=== PATIENT | female | born 1985 | race Caucasian/White ===

== ENCOUNTER 2020-04-10 15:07 | Inpatient (IN) | payer MEDICARE, MEDICAID, SELFPAY ==
[2020-04-10 15:09] VITALS: BP 156/76; PULSE 101; RESP 15; TEMP 35.6; O2SAT 96; BMI 44.2
--- NOTE | 2020-04-10 15:24 | ED.DCSUM_ITS ---
- ER Visit Summary Date of Service: 04/10/20 Chief Complaint: [Requesting detox from alcohol] History of Present Illness: The patient is a 34 F [presents to the emergency department stating that she wants detox from alcohol. Patient states that she was given an ultimatum by her to get into an inpatient program or he would serve her with a strange order against her. Patient states that her took 2 children and left in March because of her drinking. She is been drinking daily since October. She had been drinking mostly vodka. Patient states that she decided on 22 March when her left that she would stop drinking and stop for 4 days. Patient started drinking again on . Patient had an appointment with 180 yesterday which she missed. Patient presents today asking for detox and her last drink was around 1 AM and she had wine at that time. Currently she feels shaky anxious and jittery has a hard time focusing. She complains of nausea. She denies any abdominal pain. She denies recent illness or Covid exposures. She denies any illicit drug use.] Physical Examination: [HEENT-PERRLA, EOMI. Cranial nerves II through XII grossly intact. TMs clear. Mucous membranes moist. No adenopathy. Cardiovascular-regular rate and rhythm without murmur or ectopy Lungs-clear to auscultation, chest wall stable without crepitus or subcu emphysema Abdomen-normoactive bowel sounds, soft, nontender, no rebound or rigidity, no peritoneal signs. Extremities-intact ?4, normal range of motion, normal pulses, atraumatic] Test Results: [CBC with differential as well as LFTs and alcohol level ordered and will be pending.] Emergency Department Course and Treatment: [Line established. Patient was given Librium 25 mg p.o. Patient was given Zofran 4 mg IV. Patient was given normal saline.] Discussed with hospitalist will evaluate patient for admission Treatment Plan: [Admit] Disposition: [Admit] Impression: [Alcohol withdrawal/request for detox ] This note was generated with [employer] software. It may contain incorrect words, spelling, and punctuation that were not noted in review of the chart prior to signing ED Disposition - Plan for ED Patient: Referrals: Mukesh Peñaloza DO [Primary Care Provider] -
[2020-04-10] MEDS: Ondansetron 4 MG/2 ML Vial IV (15:56)
[2020-04-10] MEDS: 0.9% Normal Saline 1,000 ML 1000 ML IV (15:56)
[2020-04-10] MEDS: chlordiazePOXIDE 25 MG Capsule PO (16:00)
[2020-04-10 16:09] LABS: Absolute Lymphocyte Count 1.83 X10^3/uL (0.83-4.51); Absolute Neutrophil Count 7.4 X10^3/uL (2.0-7.7); Basophil# 0.12 X10^3/uL; Basophil% 1.2 % (0-1); Eosinophil# 0.11 X10^3/uL; Eosinophils% 1.1 % (0-5); Hemoglobin 14.4 g/dL (12.0-15.0); Lymphocyte # 1.83 X10^3/ul (4.0); Lymphocyte % 18.1 % (19-41); Mean Corp Hgb Conc 32.7 g/dL (32-36); Mean Corpuscular Hgb 30.6 pg (27.0-32.0); Mean Corpuscular Volume 93.4 fL (81-99); Mean Platelet Vol. 9.5 fl (6.2-12.0); Monocyte% 5.9 % (0-10); NRBC Flagged by Analyzer 0 % (0-5); Neutrophil # 7.43 X10^3/uL (2.7-7.7); Neutrophil % 73.4 % (47-70); Platelet Count 413 K/mm3 (150-450); RBC Distribution Width CV 13.5 % (11.6-14.6); RBC Distribution Width SD 46.3 fl (35.1-43.9); Red Blood Count 4.71 M/mm3 (4.2-5.4); White Blood Count 10.1 K/mm3 (4.4-11.0)
[2020-04-10 16:17] LABS: ALB/GLOB Ratio 0.9 RATIO (0.9-2.4); AST(SGOT) 106 U/L (15-37); Alanine Aminotransfer ALT/SGPT 84 U/L (13-56); Albumin, Serum 4.1 g/dL (3.2-5.0); Alkaline Phosphatase 57 U/L (45-117); Anion Gap 8 (5-15); BUN 9 mg/dL (7-18); BUN/Creat Ratio 13.7 RATIO (10-20); Calcium,Total 9.3 mg/dL (8.5-10.1); Chloride 108 mmol/L (98-107); Creatinine, Serum 0.66 mg/dL (0.55-1.02); EST Glomerular Filtration Rate 109 mL/min (>60); Est Glom Filt Rate - Afr Amer 131 mL/min (>60); Estimated Creatinine Clearance 98.42 ml/min; Globulin 4.6 g/dL (2.2-4.2); Glucose 137 mg/dL (74-106); Protein, Total 8.7 g/dL (6.4-8.2); Sodium Level 140 mmol/L (136-145)
--- NOTE | 2020-04-10 16:20 | CM.ED ---
SOCIAL WORK Informant: Dr. Whitfield Reason for Consult: Substance Abuse- requesting detox from alcohol Met with patient in room. Introduced role and reason for referral. Patient states has been drinking daily since October. Patient reports history of depression, anxiety, schizoaffective disorder and PTSD. Patient states follows with [facility] and is treated with medication and counseling services. Patient states was to have an appointment with [facility] yesterday and missed appointment due to lack of transportation. Patient wishes to complete detox program here at [facility] and continue to follow with [facility]. Call to [facility] Treatment NavigatorCem to update on admission. group care worker from [facility] to follow up with patient tomorrow. Plan: Admit to AMRITA Duvall, FLOTATION TENDER HELPER, STATE [employer]ERAL RELATIONS DEPUTY DIRECTOR
--- NOTE | 2020-04-10 16:57 | PCM.HP.STD ---
Problem List (1) Alcohol withdrawal Status: Acute Qualifiers: Complication of substance-induced condition: uncomplicated Qualified Code(s): F10.230 - Alcohol dependence with withdrawal, uncomplicated History of Present Illness Date of Admission: 04/10/20 Chief Complaint: alcohol withdrawal The patient is a 34 year old F presents seeking alcohol withdrawal. Patient drinks about 1/5 of vodka per day. Last drink was this morning. Patient was given an ultimatum by her to seek treatment or be served papers. Patient presents seeking acute treatment for alcohol withdrawal and then to follow-up with 180 upon discharge. Patient states that she quit around March 22 and was sober for about 4 days only to resume drinking again. During that time she did not have any symptoms consistent with delirium tremens. [] Past Medical History Medical History: Medical History (Last Updated 04/10/20 @ 17:[address] Gm Feliz, DO) Anemia D64.9 Depression F32.9 Hirsutism L68.0 Hypothyroid E03.9 VAUGHN (obstructive sleep apnea) G47.33 PTSD (post-traumatic stress disorder) F43.10 Psoriasis L40.9 Psoriatic arthritis L40.50 HTN (hypertension) I10 Allergies No Known Allergies Allergy (Verified 04/10/20 15:07) Home Medications: Ambulatory Orders Medication Instructions Recorded Ferrous Sulfate [Iron] 325 mg PO DAILY 04/17/16 Magnesium Oxide [Mag-Ox 400] 400 mg PO DAILY 04/17/16 Amlodipine Besylate 5 mg PO DAILY 04/10/20 Asenapine Maleate [Saphris] 20 mg SL QHS 04/10/20 Biotin 2,500 mcg PO DAILY 04/10/20 Carvedilol [Coreg (Beta Juan)] 6.25 mg PO BID 04/10/20 Cholecalciferol (Vitamin D3) 2,000 unit PO DAILY 04/10/20 [Vitamin D3] Cyanocobalamin (Vitamin B-12) 1,000 mcg PO DAILY 04/10/20 [B-12] Duloxetine HCl 60 mg PO BID 04/10/20 Ferrous Sulfate 650 mg PO QHS 04/10/20 Folic Acid 1 mg PO DAILY 04/10/20 Guselkumab [Tremfya] 100 mg SQ .COMPLEX 04/10/20 Lamotrigine 100 mg PO DAILY 04/10/20 Levothyroxine [Synthroid] 25 mcg PO DAILY 04/10/20 Methotrexate/Pf [Rasuvo 10 mg/0.2 10 mg SQ TH 04/10/20 ml Autoinj] Multivitamin 1 tab PO DAILY 04/10/20 Progesterone, Micronized 200 mg PO QHS 04/10/20 [Progesterone] Tizanidine HCl 4 mg PO PRN PRN 04/10/20 Triamcinolone 0.5% Cream 1 applic TP DAILY PRN PRN 04/10/20 [Triamcinolone Acetonide] Smoking Status: Light Smoker (<10/day) Alcohol: Heavy Drugs: None - *Family History Maternal History Items: - - no heart dz Review of Systems Constitutional: Denies: Anorexia, Chills, Fever, Night Sweats Eyes: Denies: Blurred vision, Double vision HEENT: Denies: Head Aches, Sinus Congestion, Sinus Drainage Cardiovascular: Denies: Chest Pain, Palpitations Respiratory: Denies: Cough, Shortness of breath at rest, Sputum production Gastrointestinal: Denies: Abdominal Pain, Nausea, Vomiting Genitourinary: Denies: Dysuria Musculoskeletal: Denies: Joint Pain, Joint Tenderness Skin: Denies: Rash, Wounds Neurological: Denies: Numbness, Tingling, Focal weakness Hematologic/ Lymphatic: Denies: Easy Bruising, Easy Bleeding, Hx of blood clot Comment: All review of systems were negative except as mentioned above in the history of present illness and the other review of systems. VTE Information - Inpt Only VTE Present on Admission: No VTE Mechan Device Prophylaxis: None VTE Pharm Prophylaxis ordered?: No Patient Problems: Active and Suspected Problems (Last Updated 04/10/20 @ 17:[address] Gm Feliz, DO) Alcohol withdrawal (Acute) - Physical Exam Vitals/I&O's: Vital Signs Temp Pulse Resp BP Pulse Ox 35.6 C L 101 H 15 156/76 H 96 04/10/20 15:09 04/10/20 15:04/10/20 15:04/10/20 15:04/10/20 15:09 Oxygen Delivery Method Room Air Weight: 113.398 kg Body Mass Index (BMI) 44.2 General: Alert, No apparent distress HEENT: Atraumatic, Normocephalic Oral: Moist Mucosa, No Gingival or Mucosal Lesions/ Ulcerations Neck: No Nodes, Thyroid Normal Size and Texture Lungs: Clear to auscultation, Normal air movement, No rhonchi, No wheeze, No rales Cardiovascular: Regular rate, Regular Rhythm, Normal S1, Normal S2, No murmurs Abdomen: Bowel Sounds Present, Soft, Non Tender, Non-Distended, No Hepato-splenomegaly Extremities: No edema, No Calf Tenderness Skin: No breakdown, - - Numerous scaled plaques on arms and legs. Tuft of hair over her buttocks. Musculoskeletal: No Tenderness to Palpation of Joints or Extremities, No Muscle Wasting Psych/Mental Status: Normal Affect, Appropriate Laboratory Results 04/10/20 15:45: WBC 10.1, RBC 4.71, Hgb 14.4, Hct 44.0, MCV 93.4, MCH 30.6, MCHC 32.7, RDW Std Deviation 46.3 H, RDW Coeff of Agatha 13.5, Plt Count 413, MPV 9.5, Immature Gran % (Auto) 0.300, Neut % (Auto) 73.4 H, Lymph % (Auto) 18.1 L, [place] % (Auto) 5.9, Eos % (Auto) 1.1, Baso % (Auto) 1.2 H, Absolute Neuts (auto) 7.4, Absolute Lymphs (auto) 1.83, Nucleated RBC % 0 04/10/20 15:45: Sodium 140, Potassium 4.0, Chloride 108 H, Carbon Dioxide 24.0, Anion Gap 8, BUN 9, Creatinine 0.66, Estim Creat Clear Calc 98.42, Est GFR (MDRD) Af Amer 131, Est GFR (MDRD) Non-Af 109, BUN/Creatinine Ratio 13.7, Glucose 137 H, Calcium 9.3, Total Bilirubin 0.60, AST 106 H, ALT 84 H, Alkaline Phosphatase 57, Total Protein 8.7 H, Albumin 4.1, Globulin 4.6 H, Albumin/Globulin Ratio 0.9 04/10/20 15:45: Ethyl Alcohol 11.0 04/10/20 15:45: Serum , Qual Pending Current Medications Sodium Chloride () 1,000 mls @ 150 mls/hr IV .[id number] [facility] Assessment/Plan All Active Problems (Last Updated 04/10/20 @ 17:[address] Gm Feliz, DO) Alcohol withdrawal (Acute) 1. acute alcohol withdrawal: Patient will be initiated on a phenobarbital taper plus additional medications to help with a somatic complaints of her withdrawal. Patient to follow-up with 180. Peers at the nidus of this was the giving the paper patient an ultimatum and that he would be taking her kids away unless she got treatment. Patient clarifies that she does not need to immediately go into an addiction program upon discharge from the hospital. 2. Psoriasis and psoriatic arthritis: Hold off on the ixekizumab as patient only takes it once weekly. 3. Hirsutism: This is a chronic process for the patient. Patient asking if she could shave told her that that would be fine. Recommend endocrinology follow-up as outpatient. 4. Hypertension: Continue with amlodipine and carvedilol. 5. VTE prophylaxis: Low risk. 6. Obstructive sleep apnea: Patient on CPAP at home and she has her CPAP here with her. Okay for her to use her own CPAP. Inpatient E&M: 37584 Init Hosp L2
[2020-04-10 16:59] LABS: Internal QC Validated? YES +Cl - CLEAR BKGD; Pregnancy, Serum, hCG Quali. NEGATIVE Negative
[2020-04-10 17:12] VITALS: BP 147/86; PULSE 88; RESP 16; TEMP 36.8; O2SAT 96
[2020-04-10 17:39] VITALS: BMI 38.9
[2020-04-10 18:03] VITALS: BP 168/90; PULSE 109; RESP 16; TEMP 37.7; O2SAT 95
[2020-04-10 18:06] VITALS: BP 168/90; PULSE 109; RESP 16; TEMP 37.7; O2SAT 95
[2020-04-10] MEDS: Dicyclomine 10 MG Capsule 20 MG PO (18:36)
[2020-04-10] MEDS: Loperamide 2 MG Capsule PO (18:36)
[2020-04-10] MEDS: cloNIDine HCl 0.1 MG Tablet PO (18:37)
[2020-04-10] MEDS: Buprenorphine HCl 2 MG TAB.SUBL 4 MG SL (18:37)
[2020-04-10] MEDS: Acetaminophen 500 MG Tablet PO (18:37)
[2020-04-10 19:56] VITALS: BP 148/85; PULSE 87; RESP 18; TEMP 37; O2SAT 97
[2020-04-10] MEDS: Phenobarbital 32.4 MG Tablet 64.8 MG PO ×2 (19:58→22:37)
[2020-04-10] MEDS: Gabapentin 300 MG Capsule PO (20:43)
[2020-04-10] MEDS: Ibuprofen 600 MG Tablet PO (20:43)
[2020-04-10] MEDS: Ondansetron 8 MG Tablet PO (21:55)
[2020-04-10] MEDS: hydrOXYzine PAM 25 MG Capsule 50 MG PO (22:37)
[2020-04-10] MEDS: Carvedilol 6.25 MG Tablet PO (22:37)
[2020-04-10] MEDS: DULoxetine Hcl 60 MG Capsule PO (22:37)
[2020-04-10] MEDS: ASENAPINE MALEATE 10 MG 20 MG SL (23:15)
--- NOTE | 2020-04-10 23:55 | PCS.PANDOC ---
PANDEMIC DOCUMENTATION INITIATED: Date: 1899 Time: 04/10/20
[2020-04-11] VITALS (7 sets, daily range): BP systolic 121–144; BP diastolic 65–91; PULSE 78–98; RESP 15–18; TEMP 36.7–37.2; O2SAT 97–100
[2020-04-11] MEDS: Phenobarbital 32.4 MG Tablet 64.8 MG PO ×6 (02:23→23:10)
[2020-04-11] MEDS: cloNIDine HCl 0.1 MG Tablet PO ×2 (02:42→20:53)
[2020-04-11] MEDS: Levothyroxine 25 MCG TABLET PO (06:30)
[2020-04-11] MEDS: Gabapentin 300 MG Capsule PO ×2 (06:35→14:47)
--- NOTE | 2020-04-11 07:45 | PCM.PN.HOSP ---
Patient Problems: Active and Suspected Problems (Last Updated 04/10/20 @ 17:[address] Gm Feliz, DO) Alcohol withdrawal (Acute) Subjective: Patient seen and examined. She was admitted for acute alcohol withdrawal. She has no complaints this morning. CIWA score is 5. She has remained hemodynamically stable. Vitals/I&O's: Vital Signs Temp Pulse Resp BP Pulse Ox 98.3 F 86 18 131/91 H 100 04/11/20 02:18 04/11/20 02:18 04/11/20 02:18 04/11/20 02:18 04/11/20 02:18 Oxygen Delivery Method Room Air Weight: 220 lb Body Mass Index (BMI) 38.9 Intake and Output for Last 24 Hours 04/09/20 04/10/20 04/11/20 23:59 23:59 23:59 Intake Total 1800 / 1800 600 / 600 Balance 1800 / 1800 600 / 600 General: Alert, Oriented x3, Cooperative, No apparent distress HEENT: Atraumatic, PERRLA, EOMI, Normocephalic Neck: Supple, No JVD, Negative Carotid Bruits Lungs: Clear to auscultation, Normal air movement Cardiovascular: Regular rate, No murmurs Abdomen: Bowel Sounds Present, Soft, Non Tender Extremities: No edema, Capillary Refill Less than 3 Seconds Skin: No rashes, No breakdown Musculoskeletal: No Tenderness to Palpation of Joints or Extremities Neurological: Cranial nerves II-XII grossly intact Psych/Mental Status: Normal Affect, Appropriate, Alert and oriented to time, place, person, mood and affect Microbiology Past 72 Hours 04/10/20 18:00 Mucosa - Nose SARS-CoV-2 Antigen (Rapid) - Final Laboratory Results 04/10/20 15:45: WBC 10.1, RBC 4.71, Hgb 14.4, Hct 44.0, MCV 93.4, MCH 30.6, MCHC 32.7, RDW Std Deviation 46.3 H, RDW Coeff of Agatha 13.5, Plt Count 413, MPV 9.5, Immature Gran % (Auto) 0.300, Neut % (Auto) 73.4 H, Lymph % (Auto) 18.1 L, [place] % (Auto) 5.9, Eos % (Auto) 1.1, Baso % (Auto) 1.2 H, Absolute Neuts (auto) 7.4, Absolute Lymphs (auto) 1.83, Nucleated RBC % 0 04/10/20 15:45: Sodium 140, Potassium 4.0, Chloride 108 H, Carbon Dioxide 24.0, Anion Gap 8, BUN 9, Creatinine 0.66, Estim Creat Clear Calc 98.42, Est GFR (MDRD) Af Amer 131, Est GFR (MDRD) Non-Af 109, BUN/Creatinine Ratio 13.7, Glucose 137 H, Calcium 9.3, Total Bilirubin 0.60, AST 106 H, ALT 84 H, Alkaline Phosphatase 57, Total Protein 8.7 H, Albumin 4.1, Globulin 4.6 H, Albumin/Globulin Ratio 0.9 04/10/20 15:45: Ethyl Alcohol 11.0 04/10/20 15:45: Serum , Qual NEGATIVE Current Medications Acetaminophen (Acetaminophen 500 Mg Tablet) 500 mg PO Q4H PRN PRN PRN Reason: Temp > 100.4 F Last Admin: 04/10/20 18:37 Dose: 500 mg Documented by: Al Hydroxide/Mg Hydroxide (Mag Hydrox/Al Hydrox/Simeth 30 Ml Udc) 30 ml PO Q6H PRN PRN PRN Reason: dyspesia Amlodipine Besylate (Amlodipine 5 Mg Tablet) 5 mg PO DAILY [facility] Bisacodyl (Bisacodyl 10 Mg Suppository) 10 mg RECTAL DAILY PRN PRN Reason: Constipation Carvedilol (Carvedilol 6.25 Mg Tablet) 6.25 mg PO BID [facility] Last Admin: 04/10/20 22:37 Dose: 6.25 mg Documented by: Cholecalciferol (Cholecalciferol (Vit D3) 1,000 Unit (25mcg)) 2,000 unit PO DAILY [facility] Clonidine (Clonidine Hcl 0.1 Mg Tablet) 0.1 mg PO Q8H PRN PRN PRN Reason: RESTLESSNESS Last Admin: 04/11/20 02:42 Dose: 0.1 mg Documented by: Cyanocobalamin (Cyanocobalamin 500 Mcg Tablet) 1,000 mcg PO DAILY [facility] Dicyclomine HCl (Dicyclomine 10 Mg Capsule) 20 mg PO Q6H PRN PRN PRN Reason: Abdominal Discomfort Last Admin: 04/10/20 18:36 Dose: 20 mg Documented by: Duloxetine HCl (Duloxetine Hcl 60 Mg Capsule) 60 mg PO BID [facility] Last Admin: 04/10/20 22:37 Dose: 60 mg Documented by: Ferrous Sulfate (Ferrous Sulfate 325 Mg Tablet) [facility] Folic Acid (Folic Acid 1 Mg Tablet) [facility] Gabapentin (Gabapentin 300 Mg Capsule) 300 mg PO Q8H PRN PRN PRN Reason: moderate to severe anxiety Last Admin: 04/11/20 06:35 Dose: 300 mg Documented by: Hydroxyzine Pamoate (Hydroxyzine Vanesa 25 Mg Capsule) 50 mg PO Q6H PRN PRN PRN Reason: mild anxiety Last Admin: 04/10/20 22:37 Dose: 50 mg Documented by: Sodium Chloride () 250 mls @ 15 mls/hr IV .[id number] PRN PRN Reason: Saline Flush Sodium Chloride () 250 mls @ 15 mls/hr IV .[id number] PRN PRN Reason: Additional IVPB Infusion Ibuprofen (Ibuprofen 600 Mg Tablet) 600 mg PO Q8H PRN PRN PRN Reason: Pain Score 1-10 Last Admin: 04/10/20 20:43 Dose: 600 mg Documented by: Lamotrigine (Lamotrigine 100 Mg Tablet) 100 mg PO DAILY [facility] Levothyroxine Sodium (Levothyroxine 25 Mcg Tablet) 25 mcg PO DAILY@0600 [facility] Last Admin: 04/11/20 06:30 Dose: 25 mcg Documented by: Loperamide HCl (Loperamide 2 Mg Capsule) 2 mg PO Q4H PRN PRN PRN Reason: LOOSE STOOLS Last Admin: 04/10/20 18:36 Dose: 2 mg Documented by: Magnesium Chloride (Magnesium Chloride 64 Mg Delay Rel.Tablet) 128 mg PO DAILY [facility] Methocarbamol (Methocarbamol 750 Mg Tablet) 1,500 mg PO Q6H PRN PRN PRN Reason: MUSCLE SPASM Nutritional Formula (Lactose Free) (Ensure Enlive 120 Ml Liquid) 120 ml PO 4X/DAY [facility] Last Admin: 04/10/20 23:15 Dose: 120 ml Documented by: Ondansetron HCl (Ondansetron 8 Mg Tablet) 8 mg PO Q8H PRN PRN PRN Reason: NAUSEA Last Admin: 04/10/20 21:55 Dose: 8 mg Documented by: Phenobarbital (Phenobarbital 32.4 Mg Tablet) 97.2 mg PO Q4H [facility]; Taper Stop: 04/15/20 02:59 Last Admin: 04/11/20 06:30 Dose: 97.2 mg Documented by: Senna (Senna Tablet) 2 tablet PO QHS PRN PRN Reason: Constipation Sodium Chloride (0.9% Saline Lock 10 Ml Syringe) 10 - 40 ml IV UD PRN PRN Reason: SALINE FLUSH Thiamine HCl (Thiamine Hydrochloride 100 Mg Tablet) 100 mg PO DAILYCM [facility] Trazodone HCl (Trazodone 100 Mg Tablet) 100 mg PO QHS PRN PRN PRN Reason: INSOMNIA Medical Necessity - Tobacco Use Smoking Status: Light Smoker (<10/day) Tobacco Use: Cigarettes Assessment/Plan All Active Problems (Last Updated 04/10/20 @ 17:[address] Gm Feliz, DO) Alcohol withdrawal (Acute) #Acute alcohol withdrawal On phenobarbital withdrawal protocol. On thiamine, folic acid and multivitamins. Monitor CIWA score which is 5 this morning. #Hypertension: On amlodipine and carvedilol #Psoriasis and psoriatic arthritis: On his acute eval weekly. #Chronic hirsutism: To follow-up with endocrinology on outpatient basis. #Obstructive sleep apnea: On CPAP nightly. DVT prophylaxis: Low risk. Encouraged to ambulate. Inpatient E&M: 28165 Subs Hosp L2
[2020-04-11] MEDS: Ferrous Sulfate 325 MG Tablet PO (08:05)
[2020-04-11] MEDS: Thiamine Hydrochloride 100 MG Tablet PO (08:05)
[2020-04-11] MEDS: Folic Acid 1 MG Tablet PO (08:05)
[2020-04-11] MEDS: Magnesium Chloride 64 MG Delay Rel.Tablet 128 MG PO (09:21)
[2020-04-11] MEDS: Cyanocobalamin 500 MCG Tablet 1000 MCG PO (09:21)
[2020-04-11] MEDS: amLODIPine 5 MG Tablet PO (09:22)
[2020-04-11] MEDS: lamoTRIgine 100 MG Tablet PO (09:22)
[2020-04-11] MEDS: Carvedilol 6.25 MG Tablet PO ×2 (09:22→23:11)
[2020-04-11] MEDS: DULoxetine Hcl 60 MG Capsule PO ×2 (09:23→23:10)
[2020-04-11] MEDS: hydrOXYzine PAM 25 MG Capsule 50 MG PO (09:43)
[2020-04-11] MEDS: Ammonium Lactate 225 gm Bottle 1 APPLIC TOPICAL ×2 (14:16→23:13)
[2020-04-11] MEDS: Methocarbamol 750 MG Tablet 1500 MG PO ×2 (14:47→20:52)
--- NOTE | 2020-04-11 19:26 | ADDICTION ---
This medical writer met with patient in her room. Patient appeared to be experiencing active delusions and presented as difficult to have a conversation with or focus on topic. Pt. states that she is not in alcohol withdrawal and is here because she is not allowed to go back to her home based on protection order. Pt. plans to follow up with [facility] and is established with both agencies. She is considering [facility] upon d/c from [facility]. This medical writer will complete documentations and will fax to [facility].
[2020-04-11] MEDS: ASENAPINE MALEATE 10 MG 20 MG SL (23:11)
[2020-04-11] MEDS: busPIRone 15 MG TABLET 30 MG PO (23:18)
[2020-04-12] VITALS (9 sets, daily range): BP systolic 105–137; BP diastolic 55–74; PULSE 68–82; RESP 15–16; TEMP 36.6–37.1; O2SAT 97–100
[2020-04-12] MEDS: Phenobarbital 32.4 MG Tablet 64.8 MG PO ×6 (03:12→23:07)
[2020-04-12] MEDS: Gabapentin 300 MG Capsule PO ×3 (03:20→22:15)
[2020-04-12] MEDS: Levothyroxine 25 MCG TABLET PO (05:59)
[2020-04-12] MEDS: Ammonium Lactate 225 gm Bottle 1 APPLIC TOPICAL ×3 (05:59→22:17)
[2020-04-12] MEDS: Ferrous Sulfate 325 MG Tablet PO (07:25)
[2020-04-12] MEDS: Folic Acid 1 MG Tablet PO (07:25)
[2020-04-12] MEDS: Thiamine Hydrochloride 100 MG Tablet PO (07:28)
[2020-04-12] MEDS: Methocarbamol 750 MG Tablet 1500 MG PO ×3 (07:31→21:28)
[2020-04-12] MEDS: hydrOXYzine PAM 25 MG Capsule 50 MG PO ×2 (07:32→15:56)
--- NOTE | 2020-04-12 07:53 | PN_ITS ---
Patient Problems: Active and Suspected Problems (Last Updated 04/10/20 @ 17:[address] Gm Feliz, DO) Alcohol withdrawal (Acute) Subjective: Patient seen and examined. She has no complaints this morning. CIWA score is 2. Review of systems otherwise negative. Vitals/I&O's: Vital Signs Temp Pulse Resp BP Pulse Ox 97.8 F 68 15 105/55 L 97 04/12/20 06:00 04/12/20 06:00 04/12/20 06:00 04/12/20 06:00 04/12/20 06:00 Oxygen Delivery Method Room Air Weight: 220 lb Body Mass Index (BMI) 38.9 Intake and Output for Last 24 Hours 04/10/20 04/11/20 04/12/20 23:59 23:59 23:59 Intake Total 1800 / 1800 2600 / 2600 Balance 1800 / 1800 2600 / 2600 General: Alert, Oriented x3, Cooperative, No apparent distress HEENT: Atraumatic, PERRLA, EOMI, Normocephalic Neck: Supple, No JVD, Negative Carotid Bruits Lungs: Clear to auscultation, Normal air movement Cardiovascular: Regular rate, No murmurs Abdomen: Bowel Sounds Present, Soft, Non Tender Extremities: No edema, Capillary Refill Less than 3 Seconds Skin: No rashes, No breakdown Musculoskeletal: No Tenderness to Palpation of Joints or Extremities Neurological: Cranial nerves II-XII grossly intact Psych/Mental Status: Normal Affect, Appropriate, Alert and oriented to time, place, person, mood and affect Microbiology Past 72 Hours 04/10/20 18:00 Mucosa - Nose SARS-CoV-2 Antigen (Rapid) - Final Current Medications Acetaminophen (Acetaminophen 500 Mg Tablet) 500 mg PO Q4H PRN PRN PRN Reason: Temp > 100.4 F Last Admin: 04/10/20 18:37 Dose: 500 mg Documented by: Al Hydroxide/Mg Hydroxide (Mag Hydrox/Al Hydrox/Simeth 30 Ml Udc) 30 ml PO Q6H PRN PRN PRN Reason: dyspesia Amlodipine Besylate (Amlodipine 5 Mg Tablet) 5 mg PO DAILY [facility] Last Admin: 04/11/20 09:22 Dose: 5 mg Documented by: Bisacodyl (Bisacodyl 10 Mg Suppository) 10 mg RECTAL DAILY PRN PRN Reason: Constipation Buspirone HCl (Buspirone 15 Mg Tablet) 30 mg PO BID [facility] Last Admin: 04/11/20 23:18 Dose: 30 mg Documented by: Carvedilol (Carvedilol 6.25 Mg Tablet) 6.25 mg PO BID [facility] Last Admin: 04/11/20 23:11 Dose: 6.25 mg Documented by: Cholecalciferol (Cholecalciferol (Vit D3) 1,000 Unit (25mcg)) 2,000 unit PO DAILY [facility] Last Admin: 04/11/20 09:21 Dose: 2,000 unit Documented by: Clonidine (Clonidine Hcl 0.1 Mg Tablet) 0.1 mg PO Q8H PRN PRN PRN Reason: RESTLESSNESS Last Admin: 04/11/20 20:53 Dose: 0.1 mg Documented by: Cyanocobalamin (Cyanocobalamin 500 Mcg Tablet) 1,000 mcg PO DAILY [facility] Last Admin: 04/11/20 09:21 Dose: 1,000 mcg Documented by: Dicyclomine HCl (Dicyclomine 10 Mg Capsule) 20 mg PO Q6H PRN PRN PRN Reason: Abdominal Discomfort Last Admin: 04/10/20 18:36 Dose: 20 mg Documented by: Duloxetine HCl (Duloxetine Hcl 60 Mg Capsule) 60 mg PO BID [facility] Last Admin: 04/11/20 23:10 Dose: 60 mg Documented by: Ferrous Sulfate (Ferrous Sulfate 325 Mg Tablet) [facility] Last Admin: 04/12/20 07:25 Dose: 325 mg Documented by: Folic Acid (Folic Acid 1 Mg Tablet) [facility] Last Admin: 04/12/20 07:25 Dose: 1 mg Documented by: Gabapentin (Gabapentin 300 Mg Capsule) 300 mg PO Q8H PRN PRN PRN Reason: moderate to severe anxiety Last Admin: 04/12/20 03:20 Dose: 300 mg Documented by: Hydroxyzine Pamoate (Hydroxyzine Vanesa 25 Mg Capsule) 50 mg PO Q6H PRN PRN PRN Reason: mild anxiety Last Admin: 04/12/20 07:32 Dose: 50 mg Documented by: Sodium Chloride () 250 mls @ 15 mls/hr IV .[id number] PRN PRN Reason: Saline Flush Sodium Chloride () 250 mls @ 15 mls/hr IV .[id number] PRN PRN Reason: Additional IVPB Infusion Ibuprofen (Ibuprofen 600 Mg Tablet) 600 mg PO Q8H PRN PRN PRN Reason: Pain Score 1-10 Last Admin: 04/10/20 20:43 Dose: 600 mg Documented by: Lactic Acid (Ammonium Lactate 225 Gm Bottle) 1 applic TOPICAL TID [facility]; Protocol Last Admin: 04/12/20 05:59 Dose: 1 applicatio Documented by: Lamotrigine (Lamotrigine 100 Mg Tablet) 100 mg PO DAILY [facility] Last Admin: 04/11/20 09:22 Dose: 100 mg Documented by: Levothyroxine Sodium (Levothyroxine 25 Mcg Tablet) 25 mcg PO DAILY@0600 [facility] Last Admin: 04/12/20 05:59 Dose: 25 mcg Documented by: Loperamide HCl (Loperamide 2 Mg Capsule) 2 mg PO Q4H PRN PRN PRN Reason: LOOSE STOOLS Last Admin: 04/10/20 18:36 Dose: 2 mg Documented by: Magnesium Chloride (Magnesium Chloride 64 Mg Delay Rel.Tablet) 128 mg PO DAILY [facility] Last Admin: 04/11/20 09:21 Dose: 128 mg Documented by: Methocarbamol (Methocarbamol 750 Mg Tablet) 1,500 mg PO Q6H PRN PRN PRN Reason: MUSCLE SPASM Last Admin: 04/12/20 07:31 Dose: 1,500 mg Documented by: Nutritional Formula (Lactose Free) (Ensure Enlive 120 Ml Liquid) 120 ml PO 4X/DAY [facility] Last Admin: 04/11/20 23:13 Dose: 120 ml Documented by: Ondansetron HCl (Ondansetron 8 Mg Tablet) 8 mg PO Q8H PRN PRN PRN Reason: NAUSEA Last Admin: 04/10/20 21:55 Dose: 8 mg Documented by: Phenobarbital (Phenobarbital 32.4 Mg Tablet) 64.8 mg PO Q4H [facility]; Taper Stop: 04/15/20 02:59 Last Admin: 04/12/20 05:59 Dose: 64.8 mg Documented by: Senna (Senna Tablet) 2 tablet PO QHS PRN PRN Reason: Constipation Sodium Chloride (0.9% Saline Lock 10 Ml Syringe) 10 - 40 ml IV UD PRN PRN Reason: SALINE FLUSH Thiamine HCl (Thiamine Hydrochloride 100 Mg Tablet) [facility] Last Admin: 04/12/20 07:28 Dose: 100 mg Documented by: Trazodone HCl (Trazodone 100 Mg Tablet) 100 mg PO QHS PRN PRN PRN Reason: INSOMNIA STROKE Vital Signs/Narrative: Vital Signs Temp Pulse Resp BP Pulse Ox 04/12/20 06:00 97.8 F 68 15 105/55 L 97 Medical Necessity - Tobacco Use Smoking Status: Light Smoker (<10/day) Tobacco Use: Cigarettes Assessment/Plan All Active Problems (Last Updated 04/10/20 @ 17:[address] Gm Feliz, DO) Alcohol withdrawal (Acute) #Acute alcohol withdrawal * On phenobarbital withdrawal protocol. On thiamine, folic acid and multivitamins. * Monitor CIWA score which is 2 this morning. * #Hypertension: On amlodipine and carvedilol #Psoriasis and psoriatic arthritis: on ixekizumab weekly #Chronic hirsutism: To follow-up with endocrinology on outpatient basis. #Obstructive sleep apnea: On CPAP nightly. DVT prophylaxis: Low risk. Encouraged to ambulate. Inpatient E&M: [id number] Subs Hosp L2
[2020-04-12] MEDS: Carvedilol 6.25 MG Tablet PO ×2 (09:53→21:29)
[2020-04-12] MEDS: Magnesium Chloride 64 MG Delay Rel.Tablet 128 MG PO (09:53)
[2020-04-12] MEDS: Cyanocobalamin 500 MCG Tablet 1000 MCG PO (09:54)
[2020-04-12] MEDS: lamoTRIgine 100 MG Tablet PO (09:54)
[2020-04-12] MEDS: DULoxetine Hcl 60 MG Capsule PO ×2 (09:54→21:29)
[2020-04-12] MEDS: busPIRone 15 MG TABLET 30 MG PO ×2 (09:54→21:29)
[2020-04-12] MEDS: amLODIPine 5 MG Tablet PO (09:55)
[2020-04-12] MEDS: cloNIDine HCl 0.1 MG Tablet PO (15:56)
[2020-04-12] MEDS: ASENAPINE MALEATE 10 MG 20 MG SL (21:29)
[2020-04-13] VITALS: BP 112/65; PULSE 76; RESP 15; TEMP 36.9; O2SAT 98
[2020-04-13] MEDS: cloNIDine HCl 0.1 MG Tablet PO ×2 (00:09→08:38)
[2020-04-13] MEDS: hydrOXYzine PAM 25 MG Capsule 50 MG PO (00:09)
[2020-04-13] MEDS: Phenobarbital 32.4 MG Tablet 64.8 MG PO ×2 (03:37→08:34)
[2020-04-13 03:38] VITALS: BP 116/61; PULSE 67; RESP 15; TEMP 36.9; O2SAT 97
[2020-04-13 06:00] VITALS: BP 107/51; PULSE 70; RESP 15; TEMP 36.7; O2SAT 100
[2020-04-13] MEDS: Levothyroxine 25 MCG TABLET PO (06:29)
[2020-04-13] MEDS: Ammonium Lactate 225 gm Bottle 1 APPLIC TOPICAL (06:30)
[2020-04-13 06:31] VITALS: BP 107/51; PULSE 70; RESP 15; TEMP 36.2; O2SAT 97
--- NOTE | 2020-04-13 07:27 | CPS ---
Pt sleeping w/own CPAP on.
--- NOTE | 2020-04-13 08:02 | PCM.DC ---
- Discharge Diagnoses Current Active Problems: Current Active and Chronic Problems (Last Updated 04/10/20 @ 17:[address] Gm Feliz DO) Alcohol withdrawal (Acute) You will use the following diet at home:: No restrictions Your food should be the consistency of: Regular Discharge Activity: Return to Normal Activity Allergies/Adverse Reactions: Allergies No Known Allergies Allergy (Verified 04/10/20 15:07) Medications to take at Discharge Ferrous Sulfate [Iron] 325 mg PO DAILY 04/17/16 Magnesium Oxide [Mag-Ox 400] 400 mg PO DAILY 04/17/16 Amlodipine Besylate 5 mg PO DAILY 04/10/20 Asenapine Maleate [Saphris] 10 mg SL QHS 04/10/20 Biotin 2,500 mcg PO DAILY 04/10/20 Carvedilol [Coreg (Beta Juan)] 6.25 mg PO DAILY 04/10/20 Cholecalciferol (Vitamin D3) [Vitamin D3] 4,000 unit PO BID 04/10/20 Cyanocobalamin (Vitamin B-12) [B-12] 1,000 mcg PO WE 04/10/20 Duloxetine HCl 60 mg PO BID 04/10/20 Ferrous Sulfate 650 mg PO QHS 04/10/20 Folic Acid 1 mg PO DAILY 04/10/20 Guselkumab [Tremfya] 100 mg SQ .COMPLEX 04/10/20 Lamotrigine 100 mg PO DAILY 04/10/20 Levothyroxine [Synthroid] 25 mcg PO DAILY 04/10/20 Methotrexate/Pf [Rasuvo 10 mg/0.2 ml Autoinj] 10 mg SQ TH 04/10/20 Modafinil [Provigil] 200 mg PO DAILY 04/10/20 Multivitamin 1 tab PO DAILY 04/10/20 Progesterone, Micronized [Progesterone] 200 mg PO QHS 04/10/20 Tizanidine HCl 4 mg PO PRN PRN 04/10/20 Triamcinolone 0.5% Cream [Kenalog] 1 applic TP DAILY PRN PRN 04/10/20 Buspirone HCl [Buspar] 60 mg PO BID 04/11/20 Primary Care Physician: Mukesh Peñaloza DO [Primary Care Provider] - Please follow up with your Primary Care Physician in: IN 1-2 WEEKS Test Results: Test results from this visit will be discussed in further detail at your follow-up appointment, if applicable. Proposed Discharge Date: 04/13/20
--- NOTE | 2020-04-13 08:03 | DS.PCM_ITS ---
Discharge Date and Diagnosis - Problem List Patient Problems: Active and Suspected Problems (Last Updated 04/10/20 @ 17:[address] Gm Feliz DO) Alcohol withdrawal (Acute) Date of Admission: 04/10/20 Date of Discharge: 04/13/20 - Primary Discharge Diagnosis Acute Problems: Active Problems (Last Updated 04/10/20 @ 17:[address] Gm Feliz DO) Alcohol withdrawal (Acute) Hospital Course and Treatment Summary of Care Provided: Patient is a 34-year-old female admitted with acute alcohol withdrawal. Patient was admitted to regular nursing floor managed with above taper 1. Acute alcohol withdrawal -Patient was admitted to regular nursing floor managed with above taper 2. Hypertension - Blood pressure controlled, home medications continued with dose adjustment as needed 3. Psoriasis and psoriatic arthritis - on ixekizumab weekly 4. Hirsutism -Patient follow-up via PCP 5. Morbid obesity - With a BMI of 39 patient was counseled on weight reduction 6. Obstructive sleep apnea - On CPAP nightly. DVT prophylaxis ?Assessed to be low risk did encourage early ambulation. Patient Problems: Active and Suspected Problems (Last Updated 04/10/20 @ 17:[address] Gm Feliz DO) Alcohol withdrawal (Acute) Objective: GENERAL: cooperative HEENT: Atraumatic; EYES; Anicteric, Normal Conjunctiva NECK; supple, normal thyroid, RESPIRATORY: Diminished to auscultation CARDIOVASCULAR: Regular S1 S2, GI: soft, normoactive bowel sounds, SKIN: No Rash PSYCH; Flat affect - Physical Exam Vitals/I&O's: Vital Signs Temp Pulse Resp BP Pulse Ox 97.1 F L 70 15 107/51 L 97 04/13/20 06:31 04/13/20 06:31 04/13/20 06:31 04/13/20 06:31 04/13/20 06:31 Oxygen Delivery Method Room Air Weight: 99.79 kg Body Mass Index (BMI) 38.9 Intake and Output for Last 24 Hours 04/11/20 04/12/20 04/13/20 23:59 23:59 23:59 Intake Total 2600 / 2600 2200 / 3100 1200 / 1200 Balance 2600 / 2600 2200 / 3100 1200 / 1200 General: Alert HEENT: Atraumatic Lungs: Diminished Psych/Mental Status: Flat Affect Microbiology Past 72 Hours 04/10/20 18:00 Mucosa - Nose SARS-CoV-2 Antigen (Rapid) - Final Current Medications Acetaminophen (Acetaminophen 500 Mg Tablet) 500 mg PO Q4H PRN PRN PRN Reason: Temp > 100.4 F Last Admin: 04/10/20 18:37 Dose: 500 mg Documented by: Al Hydroxide/Mg Hydroxide (Mag Hydrox/Al Hydrox/Simeth 30 Ml Udc) 30 ml PO Q6H PRN PRN PRN Reason: dyspesia Amlodipine Besylate (Amlodipine 5 Mg Tablet) 5 mg PO DAILY [facility] Last Admin: 04/12/20 09:55 Dose: 5 mg Documented by: Bisacodyl (Bisacodyl 10 Mg Suppository) 10 mg RECTAL DAILY PRN PRN Reason: Constipation Buspirone HCl (Buspirone 15 Mg Tablet) 30 mg PO BID [facility] Last Admin: 04/12/20 21:29 Dose: 30 mg Documented by: Carvedilol (Carvedilol 6.25 Mg Tablet) 6.25 mg PO BID [facility] Last Admin: 04/12/20 21:29 Dose: 6.25 mg Documented by: Cholecalciferol (Cholecalciferol (Vit D3) 1,000 Unit (25mcg)) 2,000 unit PO DAILY [facility] Last Admin: 04/12/20 09:53 Dose: 2,000 unit Documented by: Clonidine (Clonidine Hcl 0.1 Mg Tablet) 0.1 mg PO Q8H PRN PRN PRN Reason: RESTLESSNESS Last Admin: 04/13/20 00:09 Dose: 0.1 mg Documented by: Cyanocobalamin (Cyanocobalamin 500 Mcg Tablet) 1,000 mcg PO DAILY [facility] Last Admin: 04/12/20 09:54 Dose: 1,000 mcg Documented by: Dicyclomine HCl (Dicyclomine 10 Mg Capsule) 20 mg PO Q6H PRN PRN PRN Reason: Abdominal Discomfort Last Admin: 04/10/20 18:36 Dose: 20 mg Documented by: Duloxetine HCl (Duloxetine Hcl 60 Mg Capsule) 60 mg PO BID [facility] Last Admin: 04/12/20 21:29 Dose: 60 mg Documented by: Ferrous Sulfate ([facility] S[facility]ate 325 Mg Tablet) [facility] Last Admin: 04/12/20 07:25 Dose: 325 mg Documented by: Folic Acid (Folic Acid 1 Mg Tablet) 1 mg PO DAILYCM [facility] Last Admin: 04/12/20 07:25 Dose: 1 mg Documented by: Gabapentin (Gabapentin 300 Mg Capsule) 300 mg PO Q8H PRN PRN PRN Reason: moderate to severe anxiety Last Admin: 04/12/20 22:15 Dose: 300 mg Documented by: Hydroxyzine Pamoate (Hydroxyzine Vanesa 25 Mg Capsule) 50 mg PO Q6H PRN PRN PRN Reason: mild anxiety Last Admin: 04/13/20 00:09 Dose: 50 mg Documented by: Sodium Chloride () 250 mls @ 15 mls/hr IV .[id number] PRN PRN Reason: Saline Flush Sodium Chloride () 250 mls @ 15 mls/hr IV .[id number] PRN PRN Reason: Additional IVPB Infusion Ibuprofen (Ibuprofen 600 Mg Tablet) 600 mg PO Q8H PRN PRN PRN Reason: Pain Score 1-10 Last Admin: 04/10/20 20:43 Dose: 600 mg Documented by: Lactic Acid (Ammonium Lactate 225 Gm Bottle) 1 applic TOPICAL TID [facility]; Protocol Last Admin: 04/13/20 06:30 Dose: 1 applicatio Documented by: Lamotrigine (Lamotrigine 100 Mg Tablet) 100 mg PO DAILY [facility] Last Admin: 04/12/20 09:54 Dose: 100 mg Documented by: Levothyroxine Sodium (Levothyroxine 25 Mcg Tablet) 25 mcg PO DAILY@0600 [facility] Last Admin: 04/13/20 06:29 Dose: 25 mcg Documented by: Loperamide HCl (Loperamide 2 Mg Capsule) 2 mg PO Q4H PRN PRN PRN Reason: LOOSE STOOLS Last Admin: 04/10/20 18:36 Dose: 2 mg Documented by: Magnesium Chloride (Magnesium Chloride 64 Mg Delay Rel.Tablet) 128 mg PO DAILY [facility] Last Admin: 04/12/20 09:53 Dose: 128 mg Documented by: Methocarbamol (Methocarbamol 750 Mg Tablet) 1,500 mg PO Q6H PRN PRN PRN Reason: MUSCLE SPASM Last Admin: 04/12/20 21:28 Dose: 1,500 mg Documented by: Nutritional Formula (Lactose Free) (Ensure Enlive 120 Ml Liquid) 120 ml PO 4X/DAY [facility] Last Admin: 04/12/20 22:17 Dose: 120 ml Documented by: Ondansetron HCl (Ondansetron 8 Mg Tablet) 8 mg PO Q8H PRN PRN PRN Reason: NAUSEA Last Admin: 04/10/20 21:55 Dose: 8 mg Documented by: Phenobarbital (Phenobarbital 32.4 Mg Tablet) 64.8 mg PO Q6H [facility]; Taper Stop: 04/15/20 02:59 Last Admin: 04/13/20 03:37 Dose: 64.8 mg Documented by: Senna (Senna Tablet) 2 tablet PO QHS PRN PRN Reason: Constipation Sodium Chloride (0.9% Saline Lock 10 Ml Syringe) 10 - 40 ml IV UD PRN PRN Reason: SALINE FLUSH Thiamine HCl (Thiamine Hydrochloride 100 Mg Tablet) 100 mg PO DAILYCM [facility] Last Admin: 04/12/20 07:28 Dose: 100 mg Documented by: Trazodone HCl (Trazodone 100 Mg Tablet) 100 mg PO QHS PRN PRN PRN Reason: INSOMNIA Discharge Diet: No Restrictions Discharge Activity: Return to Normal Activity Home Medications: Medications to take at Discharge Ferrous Sulfate [Iron] 325 mg PO DAILY 04/17/16 Magnesium Oxide [Mag-Ox 400] 400 mg PO DAILY 04/17/16 Amlodipine Besylate 5 mg PO DAILY 04/10/20 Asenapine Maleate [Saphris] 10 mg SL QHS 04/10/20 Biotin 2,500 mcg PO DAILY 04/10/20 Carvedilol [Coreg (Beta Juan)] 6.25 mg PO DAILY 04/10/20 Cholecalciferol (Vitamin D3) [Vitamin D3] 4,000 unit PO BID 04/10/20 Cyanocobalamin (Vitamin B-12) [B-12] 1,000 mcg PO WE 04/10/20 Duloxetine HCl 60 mg PO BID 04/10/20 Ferrous Sulfate 650 mg PO QHS 04/10/20 Folic Acid 1 mg PO DAILY 04/10/20 Guselkumab [Tremfya] 100 mg SQ .COMPLEX 04/10/20 Lamotrigine 100 mg PO DAILY 04/10/20 Levothyroxine [Synthroid] 25 mcg PO DAILY 04/10/20 Methotrexate/Pf [Rasuvo 10 mg/0.2 ml Autoinj] 10 mg SQ TH 04/10/20 Modafinil [Provigil] 200 mg PO DAILY 04/10/20 Multivitamin 1 tab PO DAILY 04/10/20 Progesterone, Micronized [Progesterone] 200 mg PO QHS 04/10/20 Tizanidine HCl 4 mg PO PRN PRN 04/10/20 Triamcinolone 0.5% Cream [Kenalog] 1 applic TP DAILY PRN PRN 04/10/20 Buspirone HCl [Buspar] 60 mg PO BID 04/11/20 Primary Care Physician: Mukesh Peñaloza DO [Primary Care Provider] - Please follow up with your Primary Care Physician in: IN 1-2 WEEKS Disposition: Home Minutes spent on discharge:: 35 Patient Condition:: Stable Medical Necessity - Tobacco Use Smoking Status: Light Smoker (<10/day) Tobacco Use: Cigarettes Meaningful Use Info Meaningful Use Diagnoses (Choose all that apply): None applicable Inpatient E&M: [id number] [facility]
[2020-04-13 08:21] VITALS: BP 123/56; PULSE 83; RESP 18; TEMP 36.6; O2SAT 98
[2020-04-13] MEDS: Cyanocobalamin 500 MCG Tablet 1000 MCG PO (08:34)
[2020-04-13] MEDS: Ferrous Sulfate 325 MG Tablet PO (08:34)
[2020-04-13] MEDS: Folic Acid 1 MG Tablet PO (08:35)
[2020-04-13] MEDS: Thiamine Hydrochloride 100 MG Tablet PO (08:35)
[2020-04-13] MEDS: Gabapentin 300 MG Capsule PO (08:38)
--- NOTE | 2020-04-13 08:54 | ADDICTION ---
Documentation completed, faxed to [facility] and placed in pt chart on floor.
--- NOTE | 2020-04-13 09:07 | ADDICTION ---
This fiction and nonfiction prose writer met with pt in her room to finalize d/c plan. This fiction and nonfiction prose writer facilitated phone call with the [facility] to coordinate for intake into [facility]. Pt completed phone call and is waiting for approval. This fiction and nonfiction prose writer will coordinate with [facility] and [facility] for discharge planning.
--- NOTE | 2020-04-13 09:33 | ADDICTION ---
This marketing copywriter was contacted by the [facility]. They are full and not accepting clients at this time. This marketing copywriter assisted client in contacting [facility], who has available beds. Pt to present to [facility] today. This marketing copywriter to provide transportation. Pt. is scheduled to meet with this marketing copywriter for assessment and treatment coordination on 04/16/2020.
[2020-04-13] MEDS: Methocarbamol 750 MG Tablet 1500 MG PO (09:55)
--- NOTE | 2020-04-13 10:00 | NURSING ---
Patients medications and Money $1650.00 from home was returned to patient. Patient got her belongings together and is going to [facility] at discharge. Denied any questions.
== END 2020-04-13 10:13 | disposition home or self-care (01) | DRG 897 ==
LOC: ED 16:04 → MS3 16:41
PROVIDERS: Emergency Provider Emergency Medicine; PCP Family Medicine; Visit Provider Internal Medicine
DX: F10.230 Alcohol dependence with withdrawal, uncomplicated (principal); Z68.41 Body mass index [BMI] 40.0-44.9, adult; I10 Essential (primary) hypertension; L40.50 Arthropathic psoriasis, unspecified; L68.0 Hirsutism; G47.33 Obstructive sleep apnea (adult) (pediatric); F17.210 Nicotine dependence, cigarettes, uncomplicated; E66.01 Morbid (severe) obesity due to excess calories; Z79.890 Hormone replacement therapy; E03.9 Hypothyroidism, unspecified; F32.9 Major depressive disorder, single episode, unspecified; F43.10 Post-traumatic stress disorder, unspecified
CPT/HCPCS: 80053; 82077; 84703; 85025; 87426; 97802; 99284; J7030; A4216; J2405